=== PATIENT | female | born 1960 | race Caucasian/White ===

== ENCOUNTER → 2018-04-29 15:49 | Outpatient (REF) | payer BC, SELFPAY ==
[2018-04-29 18:29] LABS: Basophils % 0.6 % (0.1-2.0); Eosinophils # 0.2 K/mm3 (0.0-0.4); Eosinophils % 3.3 % (0.1-12.0); Hematocrit 39.7 % (37.0-47.0); Hemoglobin 12.8 g/dL (12.2-16.2); Lymphocytes # 1.7 K/mm3 (0.7-4.5); Mean Corpuscular HGB Conc 32.3 g/dL (31.8-35.4); Mean Corpuscular Hemoglobin 31.2 pg (27.0-31.2); Mean Corpuscular Volume 96.6 fl (81-99); Mean Platelet Volume 8.2 fl (7.4-10.4); Monocytes # 0.3 K/mm3 (0.1-1.0); Monocytes % 5.6 % (1.7-9.3); Neutrophils # 2.7 K/mm3 (1.8-7.8); Neutrophils % 55.5 % (37.0-80.0); Platelet Count 267 K/mm3 (142-424); Red Blood Count 4.11 M/mm3 (4.20-5.40); Red Cell Distribution Width 13.3 % (11.5-17.5); White Blood Count 4.9 K/mm3 (4.8-10.8)
[2018-04-29 19:01] LABS: Alanine Aminotransferase 19 U/L (12-78); Albumin Level 3.7 gm/dL (3.4-5.0); Albumin/Globulin Ratio 1.1 (1.1-1.8); Alkaline Phosphatase 101 U/L (46-116); Anion Gap 14.8 mEq/L (5-15); Aspartate Amino Transferase 16 U/L (15-37); Bilirubin,Total 0.3 mg/dL (0.2-1.0); Blood Urea Nitrogen 13 mg/dL (7-18); Calcium 8.8 mg/dL (8.5-10.1); Carbon Dioxide 25 mmol/L (21.0-32.0); Chloride 106 mmol/L (98-107); Cholesterol 206 mg/dL (140-200); Creatinine,Serum 0.84 mg/dL (0.55-1.02); Estimated Glomerular Filt Rate 70 ml/min (>60); GFR (African American) 85 ML/MIN (>60); Globulin 3.5 gm/dl (1.3-3.2); Glucose 121 mg/dL (74-106); HDL Cholesterol 69 mg/dL (29-89); LDL Cholesterol 107 mg/dL (0-130); Potassium 3.8 mmoL/L (3.5-5.1); Sodium 142 mmol/L (136-145); T4 (Thyroxine) 5.4 ug/dl (4.7-13.3); Thyroid Stimulating Hormone 2.46 uIU/ml (0.358-3.740); Total Protein,Serum 7.2 gm/dL (6.4-8.2); Triglycerides 148 mg/dL (30-200); VLDL Cholesterol 30 mg/dL (0-40)
[2018-05-01 20:25] LABS: Vitamin D 25 Hydroxy 24.8 ng/mL (30.0-100.0)
== END ==
LOC: LAB 15:49
PROVIDERS: Visit Provider Physician Assistant
DX: M79.89 Other specified soft tissue disorders (principal)
CPT/HCPCS: 80053; 80061; 82652; 84436; 84443; 85025

== ENCOUNTER 2018-06-07 08:30 | Outpatient (RCR) | payer BC, SELFPAY ==
--- NOTE | 2018-05-25 10:48 | HMH.PTOPEV ---
PT Outpatient Evaluation Rehab PT Outpatient Evaluation Start: 05/25/18 10:35 Freq: Status: Active Protocol: Document 05/25/18 10:35 MIKEY (Rec: 05/25/18 10:48 MIKEY [id number]) Electronically Signed By Miguel Scott, PT 05/25/18 10:35 Outpatient Therapy Subjective History Subjective History Patient is a 57 year old female presenting to outpatient PT with reports of chronic L knee pain staring approximately 6 months ago of insidious onset. Pt reports most recent diagnostics negative. Pt occupation includes constant standing, walking, bending and lifting activity. Pt reports hx of lumbar spine laminectomy. Chief Complaint Pain Swelling Symptom Type Ache Sharp Tingling Symptoms Relieved By Rest/Positioning OTC Meds Symptoms Aggravated By Bending/Stooping Physical Activity Walking Lifting Prior Functional Limitations None Current Functional Limitations Lifting Housework Sleeping Standing Squatting Recreation Activity Walking Stairs Symptom Description Intermittent Level of pain today (0-10) 0 Pain scale - at its best (0-10) 0 Pain scale - at its worst (0-10) 5 Hip/Knee Eval Gait Observation General Gait Pattern Observation Antalgic Gait Assistive Device Assistive Devices None / NA Palpation Tenderness left Knee Palpation Finding Tenderness Knee Palpation Overall Comment pes anserene MMT right Hip Flexion Strength Grade 4 Good Hip Abduction Strength Grade 4 Good Hip Adduction Strength Grade 4 Good Hip Extension Strength Grade 4 Good Gluteus Anthony Strength Grade 4 Good Hip External Rotation Strength Grade 4 Good Hip Internal Rotation Strength Grade 4 Good Knee Extension Strength Grade 4 Good Knee Flexion Strength Grade 4 Good left Hip Flexion Strength Grade 4 Good Hip Abduction Strength Grade 4 Good Hip Adduction Strength Grade 4 Good Hip Extension Strength Grade 4- Good- Hip Exte
== END 2018-06-07 08:31 | disposition home or self-care (01) ==
LOC: PT 08:30
PROVIDERS: Visit Provider Physician Assistant
DX: M25.562 Pain in left knee (principal)
CPT/HCPCS: 97010; 97014; 97033; 97035; 97110; 97163; G0283

== ENCOUNTER 2021-02-26 12:11 | Emergency (ER) | payer BC, SELFPAY ==
[2021-02-26 12:15] VITALS: BP 147/100; PULSE 70; RESP 20; TEMP 36.9; O2SAT 96; BMI 32.8
[2021-02-26 12:43] LABS: UTC Strep Screen (Rapid) Negative (Negative)
--- NOTE | 2021-02-26 12:47 | HMH.EDUTC ---
[facility] [place] Disposition Clinical Impression: Paronychia of toe of right foot, Right foot pain Pharyngitis Qualifiers: Pharyngitis/tonsillitis etiology: unspecified etiology Qualified Code(s): J02.9 - Acute pharyngitis, unspecified Sciatica Qualifiers: Laterality: right Qualified Code(s): M54.31 - Sciatica, right side Disposition: Home, Self-Care Condition on Discharge: Good Instructions: DI for Pharyngitis/Tonsillopharyngitis -- Adult, DI for Sciatica Additional Instructions: Drink plenty of fluids. Take tylenol or ibuprofen for pain or fever. Take the medications as directed. Follow up with your regular doctor. GO TO THE ER FOR ANY WORSENING SYMPTOMS Go home and rest. It would be best if you rested tomorrow too. No heavy lifting. No twisting. Prescriptions: methylPREDNISolone [Medrol] 4 mg PO DIRECTED 6 Days #21 tab.ds.pk Transmission Status: Received by [id number] Azithromycin [Z-Christoph 250mg Tab*] 250 mg PO UD DOSE PK #6 tab Transmission Status: Received by [id number] Referrals: Provider,Referral, [Primary Care Provider] - Time of Disposition: 13:06 Medical Decision Making - Medical Records Medical records reviewed: No: I reviewed the patient's medical records. - Jose Inquiry Pt receiving controlled substance: No Vital Signs: 02/26/21 12:15 02/26/21 13:13 Temperature 98.4 F 98.4 F Temperature Source Oral Pulse Rate 70 Pulse Rate [Left Brachial] 70 Respiratory Rate 20 20 Blood Pressure 147/100 H Blood Pressure [Left Arm] 147/100 H Blood Pressure Mean [Left Arm] 115 Blood Pressure Source [Left Arm] Automatic Cuff Blood Pressure Position [Left Arm] Sitting 02 Sat by Pulse Oximetry 96 Oxygen Delivery Method Room Air - Lab Data Lab results reviewed: Yes: I reviewed the patient's lab results. Lab Results 02/26/21 12:33: Strep Scn Rapid Clinic Negative Orders (Tests/Meds): ORDERS Category Date Time Status Strep Screen Confirmation Stat Micro 02/26/21 12:33 Received [facility] [place] HPI - General Stated complaint: sore throat , numbness on part of the bottom of right foot Time Seen by Provider: 02/26/21 12:47 Mode of Arrival: Ambulatory Source of Information: Patient Limitations: No Limitations Description of Symptoms (Recalled from Triage Doc. by RN): PATIENT C/O NUMBNESS AND TINGLING TO RIGHT FOOT, SORENESS TO BACK OF RIGHT THIGH, AND SORE THROAT X 4 DAYS HEENT Symptoms (Recalled from RN notes): Yes Resp Symptoms (Recalled from RN notes): No Skin Symptoms (Recalled from RN notes): No MS Symptoms (Recalled from RN notes): Yes Functional Status (Recalled from RN notes): WNL - History of Present Illness Provider Complaint: She states that she has had a sore throat for the past 4 days. She denies any fever/chills/body aches/chest congestion. She has had some sinus congestion and ear pain. She has also been having pain that radiates down the back of her right thigh to just above her knee and a tingling feeling of the 2nd to 5th toes on that foot. - Related Data Previous Rx's Medication Instructions Recorded azithromycin 250 mg tablet 250 mg PO QDAY 5 Days #6 tab 07/18/19 benzonatate 100 mg capsule 100 mg PO TID PRN #14 cap 07/18/19 Azithromycin [Z-Christoph 250mg Tab*] 250 mg PO UD DOSE PK #6 tab 02/26/21 methylPREDNISolone [Medrol] 4 mg PO DIRECTED 6 Days #21 02/26/21 tab.ds.pk Allergies Allergy/AdvReac Type Severity Reaction Status Date / Time acetaminophen Allergy Verified 07/18/19 18:51 [From Darvocet-N] meperidine [From Demerol] Allergy Verified 07/18/19 18:51 propoxyphene Allergy Verified 07/18/19 18:51 [From Darvocet-N] sertraline [From Zoloft] Allergy Verified 07/18/19 18:51 venlafaxine [From Effexor] Allergy Verified 07/18/19 18:51 - Worker's Comp Is this a Worker's Comp case?: No H History - Hepatitis A Screen Drug use history?: No High risk sexual behaviors?: No History of sexu
[2021-02-26 13:13] VITALS: BP 147/100; PULSE 70; RESP 20; TEMP 36.9; O2SAT 96
== END 2021-02-26 13:16 | disposition home or self-care (01) ==
PROVIDERS: Emergency Provider Nurse Practitioner Family
DX: L03.031 Cellulitis of right toe (principal); J02.9 Acute pharyngitis, unspecified; M54.31 Sciatica, right side; Z88.5 Allergy status to narcotic agent
CPT/HCPCS: 87880; 99202; G0463

== ENCOUNTER 2021-05-20 09:02 | Emergency (ER) | payer BC, SELFPAY ==
[2021-05-20 09:34] VITALS: BP 149/89; PULSE 73; RESP 16; TEMP 37.5; O2SAT 96; BMI 31.8
--- NOTE | 2021-05-20 09:55 | HMH.EDUTC ---
[facility] [place] Disposition Clinical Impression: Sinusitis Qualifiers: Sinusitis location: unspecified location Chronicity: acute Recurrence: non-recurrent Qualified Code(s): J01.90 - Acute sinusitis, unspecified Sinusitis, acute maxillary Qualifiers: Recurrence: non-recurrent Qualified Code(s): J01.00 - Acute maxillary sinusitis, unspecified Disposition: Home, Self-Care Condition on Discharge: Good Instructions: Sinusitis, DI for Sinusitis Additional Instructions: Drink plenty of fluids. Take tylenol or ibuprofen for pain or fever. Take the medications as directed. Follow up with your regular doctor. GO TO THE ER FOR ANY WORSENING SYMPTOMS Quarantine until you know the results of your covid-19 test. If it is positive, the health department should call you and give you further instructions about your length of Quarantine and other things. Notify your school or workplace of your results and follow their instructions regarding return to work/school. Prescriptions: Amoxicillin [Amoxicillin 500mg Tab] 500 mg PO TID 10 Days #30 tab Transmission Status: Received by [id number] predniSONE [Deltasone 10mg tablet] 10 mg PO BID 3 Days #6 tab Transmission Status: Received by [facility] Referrals: Provider,Referral, [Primary Care Provider] - Time of Disposition: 10:04 Medical Decision Making - Medical Records Medical records reviewed: No: I reviewed the patient's medical records. - Jose Inquiry Pt receiving controlled substance: No Vital Signs: 05/20/21 09:34 05/20/21 10:06 Temperature 99.5 F 98.3 F Temperature Source Oral Oral Pulse Rate 70 Pulse Rate [Right] 73 Respiratory Rate 16 16 Blood Pressure 147/74 H Blood Pressure [Right Arm] 149/89 H Blood Pressure Mean [Right Arm] 109 Blood Pressure Source Automatic Cuff Blood Pressure Source [Right Arm] Automatic Cuff Blood Pressure Position Sitting Blood Pressure Position [Right Arm] Sitting 02 Sat by Pulse Oximetry 96 Oxygen Delivery Method Room Air Room Air - Lab Data Lab results reviewed: Yes: I reviewed the patient's lab results. [facility] [place] HPI - General Stated complaint: possible sinus infection Time Seen by Provider: 05/20/21 09:45 Mode of Arrival: Ambulatory Source of Information: Patient Limitations: No Limitations Description of Symptoms (Recalled from Triage Doc. by RN): pt c/o fever, sinus congestion and not feeling well HEENT Symptoms (Recalled from RN notes): Yes (fever, sinus pressure) Resp Symptoms (Recalled from RN notes): No Skin Symptoms (Recalled from RN notes): No MS Symptoms (Recalled from RN notes): No Functional Status (Recalled from RN notes): na - History of Present Illness Provider Complaint: She c/o 5 days of worsening sinus congestion. She denies any known covid exposure. - Related Data Previous Rx's Medication Instructions Recorded azithromycin 250 mg tablet 250 mg PO QDAY 5 Days #6 tab 07/18/19 benzonatate 100 mg capsule 100 mg PO TID PRN #14 cap 07/18/19 Azithromycin [Z-Christoph 250mg Tab*] 250 mg PO UD DOSE PK #6 tab 02/26/21 methylPREDNISolone [Medrol] 4 mg PO DIRECTED 6 Days #21 02/26/21 tab.ds.pk Amoxicillin [Amoxicillin 500mg Tab] 500 mg PO TID 10 Days #30 tab 05/20/21 predniSONE [Deltasone 10mg tablet] 10 mg PO BID 3 Days #6 tab 05/20/21 Allergies Allergy/AdvReac Type Severity Reaction Status Date / Time acetaminophen Allergy Verified 07/18/19 18:51 [From Darvocet-N] meperidine [From Demerol] Allergy Verified 07/18/19 18:51 propoxyphene Allergy Verified 07/18/19 18:51 [From Darvocet-N] sertraline [From Zoloft] Allergy Verified 07/18/19 18:51 venlafaxine [From Effexor] Allergy Verified 07/18/19 18:51 - Worker's Comp Is this a Worker's Comp case?: No [facility] History - Hepatitis A Screen Drug use history?: No High risk sexual behaviors?: No History of sexually transmitted infection?: No Currently employed?: No Childcare worker?: No Do y
[2021-05-20 10:06] VITALS: BP 147/74; PULSE 70; RESP 16; TEMP 36.8; O2SAT 98
== END 2021-05-20 10:07 | disposition home or self-care (01) ==
PROVIDERS: Emergency Provider Nurse Practitioner Family
DX: U07.1 COVID-19 (principal); J01.90 Acute sinusitis, unspecified
CPT/HCPCS: 99202; C9803; G0463; U0003; U0005

== ENCOUNTER 2021-05-25 19:20 | Emergency (ER) | payer BC, SELFPAY ==
--- NOTE | 2021-05-25 19:20 | ECG_ITS ---
APPROVED REPORT Exam: Resting ECG HR:91 bpm ECG Measurements Heart Rate 91 AXES [place] 122 P 45 QRSd 84 QRS -23 QT 356 T 41 QTc 437 Conclusion Normal sinus rhythm Possible Left atrial enlargement Borderline ECG Electronically signed by : Viral Centeno MD 06/12/2021 21:27:49
[2021-05-25 19:21] VITALS: BP 156/105; PULSE 102; RESP 24; TEMP 37.7; O2SAT 94; BMI 32.8
--- NOTE | 2021-05-25 19:27 | CT_ITS ---
PROCEDURE INFORMATION: Exam: CTA Chest With Contrast Exam date and time: 05/25/2021 7:27 PM Age: 60 years old Clinical indication: Dyspnea and other: Covid positivie; Additional info: Chest discomfort, covid +, dyspnea TECHNIQUE: Imaging protocol: Computed tomographic angiography of the chest with contrast. 3D rendering (Not supervised by radiologist): MIP and/or 3D reconstructed images were created by the technologist. Radiation optimization: All CT scans at this facility use at least one of these dose optimization techniques: automated exposure control; mA and/or kV adjustment per patient size (includes targeted exams where dose is matched to clinical indication); or iterative reconstruction. Contrast material: ISOVUE 370; Contrast volume: 70 ml; Contrast route: INTRAVENOUS (IV); COMPARISON: CR XR CHEST 2V 05/25/2021 8:11 PM FINDINGS: Pulmonary arteries: Normal. No pulmonary emboli to the segmental level in most cases. Aorta: Unremarkable. No aortic aneurysm. No aortic dissection. Lungs: Mild scattered bilateral patchy airspace opacities are seen. Mild dependent bilateral atelectasis. Pleural spaces: Unremarkable. No pneumothorax. No pleural effusion. Heart: Unremarkable. No cardiomegaly. No pericardial effusion. Lymph nodes: Mildly prominent mediastinal lymph nodes. Bones/joints: Unremarkable. No acute fracture. Soft tissues: Unremarkable. IMPRESSION: 1. No evidence of pulmonary embolus 2. Mild scattered bilateral airspace opacities compatible with infection 3. Mild mediastinal adenopathy is probably reactive
--- NOTE | 2021-05-25 19:27 | XR_ITS ---
PROCEDURE INFORMATION: Exam: XR Chest Exam date and time: 05/25/2021 7:27 PM Age: 60 years old Clinical indication: Dyspnea and other: Covid; Additional info: Dyspnea, covid + TECHNIQUE: Imaging protocol: XR of the chest. Views: 2 views. COMPARISON: No relevant prior studies available. FINDINGS: Lungs: Faint bilateral airspace opacities. Pleural spaces: Unremarkable. No pleural effusion. No pneumothorax. Heart/Mediastinum: Unremarkable. No cardiomegaly. Bones/joints: Unremarkable. IMPRESSION: Faint bilateral airspace opacities compatible with infection
--- NOTE | 2021-05-25 19:57 | HMH.EDCP ---
ED Disposition Clinical Impression: COVID-19, Pleurisy Disposition: Home, Self-Care Condition on Discharge: Good Instructions: DI for COVID-19 (Suspected or Confirmed ) Additional Instructions: fluids and use meds and see pcp for follow up Prescriptions: predniSONE [Prednisone 20mg Tab] 20 mg PO BID #10 tab Transmission Status: Pending to [facility] Azithromycin [Zithromax 250mg tab] 250 mg PO DIRECTED #6 tab [facility] Status[facility] Referrals: Provider,Referral, [Primary Care Provider] - - Critical Care Critical Care Time: No Attestation: On 05/25/21, the high probability of a clinically significant, sudden or life threatening deterioration of the following system(s) required my full and direct attention, intervention and personal management. The time I documented below is in addition to time spent performing reported procedures but includes the following listed in this critical care notation. Medical Decision Making - Medical Records Medical records reviewed: Yes: I reviewed the patient's medical records. - Jose Inquiry Pt receiving controlled substance: No Vital Signs: 05/25/21 19:21 05/25/21 20:48 Temperature 99.9 F H 98.8 F Temperature Source Oral Pulse Rate 79 Pulse Rate [Right Brachial] 102 H Respiratory Rate 24 Blood Pressure 145/99 H Blood Pressure [Right Arm] 156/105 H Blood Pressure Mean 107 Blood Pressure Mean [Right Arm] 122 Blood Pressure Source [Right Arm] Automatic Cuff Blood Pressure Position [Right Arm] Sitting 02 Sat by Pulse Oximetry 94 L 95 Oxygen Delivery Method Room Air - Lab Data Lab results reviewed: Yes: I reviewed the patient's lab results. Lab Results 05/25/21 19:43: WBC 2.5 L, RBC 4.37, Hgb 13.9, Hct 42.8, MCV 97.9, MCH 31.7 H, MCHC 32.4, RDW 14.0, Plt Count 137 L, MPV 9.5, Neut % (Auto) 70.8, Lymph % (Auto) 22.8, [place] % (Auto) 5.7, Eos % (Auto) 0.1, Baso % (Auto) 0.6, Neut # (Auto) 1.8, Lymph # (Auto) 0.6 L, [place] # (Auto) 0.1, Eos # (Auto) 0.0, Baso # (Auto) 0.0 05/25/21 19:43: Sodium 139, Potassium 3.7, Chloride 104, Carbon Dioxide 25, Anion Gap 13.7, BUN 7, Creatinine 0.50 L, Estimated Creat Clear 159, Estimated GFR 126, Est GFR ( Amer) 152, Glucose 112 H, Calcium 8.4, Troponin I < 0.01, C-Reactive Protein 19.2 H, TSH 4.26, Thyroxine (T4) 9.3 05/25/21 19:43: ESR 19 05/25/21 19:43: NT-Pro-B Natriuret Pep 88.7, Procalcitonin 0.044 05/25/21 19:43: Lactate 0.9 05/25/21 19:43: Total Bilirubin 0.3, Direct Bilirubin 0.2, Conjugated Bilirubin 0.0, Indirect Bilirubin 0.1, Unconjugated Bilirubin 0.2, AST 64 H, ALT 28, Alkaline Phosphatase 83, Total Protein 6.6, Albumin 3.6 Result diagrams: 05/25/21 19:43 05/25/21 19:43 Orders (Tests/Meds): ED MEDICATIONS Generic Name Dose Route Start Last Admin Trade Name Freq PRN Reason Stop Dose Admin Sodium Chloride 1,000 mls @ 999 mls/hr 05/25/21 19:30 05/25/21 19:37 Sod Chlor 0.9% 1000ml Bag IV 05/25/21 20:30 999 mls/hr .Q1H1M EDIE Administration Discontinued Medications Generic Name Dose Route Start Last Admin Trade Name Freq PRN Reason Stop Dose Admin Acetaminophen 1,000 mg 05/25/21 19:29 05/25/21 19:30 Acetaminophen 500mg Tab PO 05/25/21 19:30 Not Given ONCE ONE Dexamethasone Sodium Phosphate 10 mg 05/25/21 22:24 Dexamethasone 4mg/Ml 5ml Mdv IV 05/25/21 22:25 ONCE ONE Ibuprofen 600 mg 05/25/21 19:30 05/25/21 19:36 Ibuprofen 600 Mg Tablet PO 05/25/21 19:31 600 mg ONCE ONE Administration Iopamidol 70 ml 05/25/21 20:49 05/25/21 20:50 Iopamidol-370 (76%);100ml Bottle IV 05/25/21 20:50 70 ml ONCE ONE Administration Ketorolac Tromethamine 30 mg 05/25/21 22:24 Ketorolac 30mg/Ml Vial IV 05/25/21 22:25 ONCE ONE Sodium Chloride 40 ml 05/25/21 20:49 05/25/21 20:50 0.9 % Sodium Chloride 50 Ml Vial IV 05/25/21 20:50 40 ml ONCE ONE Administration Sodium Chloride 10 ml 0
[2021-05-25 20:02] LABS: Basophils % 0.6 % (0.1-2.0); Eosinophils % 0.1 % (0.1-12.0); Hematocrit 42.8 % (37.0-47.0); Hemoglobin 13.9 g/dL (12.2-16.2); Lymphocytes # 0.6 K/mm3 (0.7-4.5); Lymphocytes % 22.8 % (10-50); Mean Corpuscular HGB Conc 32.4 g/dL (31.8-35.4); Mean Corpuscular Hemoglobin 31.7 pg (27.0-31.2); Mean Corpuscular Volume 97.9 fl (81-99); Mean Platelet Volume 9.5 fl (7.4-10.4); Monocytes # 0.1 K/mm3 (0.1-1.0); Monocytes % 5.7 % (1.7-9.3); Neutrophils # 1.8 K/mm3 (1.8-7.8); Neutrophils % 70.8 % (37.0-80.0); Platelet Count 137 K/mm3 (142-424); Red Blood Count 4.37 M/mm3 (4.20-5.40); White Blood Count 2.5 K/mm3 (4.8-10.8)
[2021-05-25 20:03] LABS: Anion Gap 13.7 mEq/L (5-15); Blood Urea Nitrogen 7 mg/dl (7-17); Calcium 8.4 mg/dl (8.4-10.2); Carbon Dioxide 25 mmol/L (22.0-30.0); Chloride 104 mmol/L (98-107); Creatinine Clearance Estimated 159 mL/min (50-200); Estimated Glomerular Filt Rate 126 ml/min (>60); GFR (African American) 152 ML/MIN (>60); Glucose 112 mg/dl (74-100); Potassium 3.7 mmoL/L (3.5-5.1); Sodium 139 mmol/L (136-145)
[2021-05-25 20:09] LABS: C-Reactive Protein 19.2 mg/L (0-4)
[2021-05-25 20:12] LABS: Lactic Acid 0.9 mmol/L (0.7-2.1)
[2021-05-25 20:15] LABS: NT Pro Brain Natriuretic Pep. 88.7 pg/mL (0-125)
--- NOTE | 2021-05-25 20:17 | PC.NURSE ---
pt going to radiology at this time
[2021-05-25 20:22] LABS: Procalcitonin 0.044 ng/mL (0.0-2.0)
[2021-05-25 20:23] LABS: Alanine Aminotransferase 28 U/L (12-78); Bilirubin,Unconjugated 0.2 mg/dL (0.0-1.1); T4 (Thyroxine) 9.3 ug/dl (5.53-11.0)
[2021-05-25 20:24] LABS: Albumin Level 3.6 g/dl (3.5-5.0); Alkaline Phosphatase 83 U/L (38-126); Aspartate Amino Transferase 64 U/L (14-36); Bilirubin,Direct 0.2 mg/dl (0.0-0.4); Bilirubin,Indirect 0.1 mg/dL (0.0-0.9); Bilirubin,Total 0.3 mg/dl (0.2-1.3); Total Protein,Serum 6.6 g/dl (6.3-8.2)
[2021-05-25 20:27] LABS: Erythrocyte Sedimentation Rate 19 mm/hr (0-30); Troponin I < 0.01 ng/ml (0.00-0.034)
[2021-05-25 20:37] LABS: Thyroid Stimulating Hormone 4.26 uIU/mL (0.465-4.68)
--- NOTE | 2021-05-25 20:45 | PC.NURSE ---
pt returned from radiology
[2021-05-25 20:48] VITALS: BP 145/99; PULSE 79; TEMP 37.1; O2SAT 95
[2021-05-25 22:48] VITALS: BP 142/70; PULSE 78; RESP 18; TEMP 36.8; O2SAT 98
== END 2021-05-25 23:04 | disposition home or self-care (01) ==
PROVIDERS: Emergency Provider Emergency Medicine
DX: U07.1 COVID-19 (principal); R09.1 Pleurisy
CPT/HCPCS: 71046; 71275; 80048; 80076; 83605; 83880; 84145; 84436; 84443; 84484; 85025; 85651; 86140; 93005; 96365; 96375; 99283; Q9967

== ENCOUNTER 2024-07-02 13:51 | Emergency (ER) | payer BC, SELFPAY ==
[2024-07-02 14:16] VITALS: BP 180/104; PULSE 70; RESP 18; TEMP 36.9; O2SAT 96; BMI 32.8
[2024-07-02 14:26] LABS: UTC Strep Screen (Rapid) Negative (Negative)
[2024-07-02 14:30] VITALS: BP 180/70
--- NOTE | 2024-07-02 15:15 | EXP.UTC ---
Discharge Plan Disposition Patient Disposition: Home, Self-Care Condition: Good Prescriptions Prescriptions: New azithromycin 250 mg tablet See Rx Instructions .ROUTE .COMPLEX Qty: 6 0RF Rx Instructions: For 250 mg dose pack: take 500 mg today (day 1), then 250 mg for 4 days (days 2-5) benzonatate 100 mg capsule 100 mg PO TID PRN (Reason: cough) Qty: 30 0RF fluticasone propionate [Flonase Allergy Relief] 50 mcg/actuation spray,suspension 1 spray intranasal DAILY Qty: 16 0RF Rx Instructions: administer into each nostril Referrals Follow up/Referrals: Provider,Referral, MD [Primary Care Provider] - See instructions Activity Restrictions/Add. Instructions Additional Instructions/Restrictions: Take medication as prescribed. Increase fluids and rest. If symptoms persist or worsen return to clinic/PCP. If you become short of air return to the ER. Check BP 3 times a week at different times and keep a record. Take record to pcp. Clinical Impressions Clinical Impression: Acute lower respiratory infection, Pharyngitis, Acute dysfunction of both eustachian tubes Instructions Patient Instructions: Acute Bronchitis, DI for Pharyngitis/Tonsillopharyngitis -- Adult, DI for Eustachian Tube Dysfunction-Adult Print Language Print Language: [place] Discharge ED Provider: Massiel Hsu [facility] General Stated complaint: sore throat Mode of Arrival: Ambulatory Source of Information: Patient Time Seen by Provider: 07/02/24 15:14 Description of Symptoms (Recalled from Triage Doc. by RN): COUGH, SORE THROAT, FEVER HEENT Symptoms (Recalled from RN notes): Yes Resp Symptoms (Recalled from RN notes): Yes Skin Symptoms (Recalled from RN notes): No MS Symptoms (Recalled from RN notes): No Functional Status (Recalled from RN notes): WNL History of Present Illness Provider Complaint: Pt reports that she has not felt well for a week. She states that she has coughed up yellow-green mucous. She states that she has had clear sinus drainage and a sore throat. Related Data Previous Rx's ?Medication ?Instructions ?Recorded azithromycin 250 mg tablet See Rx Instructions PO .COMPLEX #6 07/02/24 tabs benzonatate 100 mg capsule 100 mg PO TID PRN cough #30 caps 07/02/24 fluticasone propionate 50 1 spray intranasal DAILY #16 grams 07/02/24 mcg/actuation nasal spray,suspension (Flonase Allergy Relief) Allergies Allergy/AdvReac Type Severity Reaction Status Date / Time acetaminophen Allergy Verified 05/02/24 16:44 [From Darvocet-N] meperidine [From Demerol] Allergy Verified 05/02/24 16:44 propoxyphene Allergy Hives Verified 05/02/24 16:44 [From Darvocet-N] sertraline [From Zoloft] Allergy Verified 05/02/24 16:44 venlafaxine [From Effexor] Allergy Verified 05/02/24 16:44 Worker's Comp Is this a Worker's Comp case?: No [facility] Disclaimer: The information contained in this section may have been updated after the patient was seen, as this information can be updated by other users. Medical History (Updated 07/02/24 @ 15:38 by Massiel Hsu APRN) Left knee pain Social History Smoking Status: Never smoker alcohol intake: never substance use type: denies use current occupational status: employed Travel in the last 8 weeks: None ROS Obtained: Yes All systems reviewed & no additional complaints except as documented Constitutional Constitutional: Reports system reviewed and no additional complaints, except as documented Eyes Eyes: Reports system reviewed and no additional complaints, except as documented ENT Ears, Nose, Mouth, and Throat: Reports system reviewed and no additional complaints, except as documented, Reports otalgia, Reports nasal discharge, Reports odynophagia, Reports sinus pressure and Reports sore throat Cardiovascular Cardiovascular: Reports system reviewed and no additional complaints, except as documented Respiratory Respiratory: Reports system reviewed and no additional complaints, except as documented, Reports change in phlegm color, Reports cough and Reports cough with sputum production Gastrointestinal Gastrointestingal: Reports system reviewed and no additional complaints, except as documented and odynophagia Genitourinary Female Genitourinary: Reports system reviewed and no additional complaints, except as documented Musculoskeletal Musculoskeletal: Reports system reviewed and no additional complaints, except as documented Integumentary/Breasts Skin/Breast: Reports system reviewed and no additional complaints, except as documented Neurologic Neurologic: Reports system reviewed and no additional complaints, except as documented Endocrine Endocrine: Reports system reviewed and no additional complaints, except as documented Hematologic/Lymphatic Henatologic/Lymphatic: Reports system reviewed and no additional complaints, except as documented Allergic/Immunologic Allergic/Immunologic: Reports system reviewed and no additional complaints, except as documented Physical Exam General General appearance: alert and in no apparent distress Head Head exam: atraumatic and normocephalic Eye Eye exam: Present normal appearance ENT ENT exam: Present mucous membranes moist Expanded ENT Exam External ear exam: Present normal external inspection TM/Canal exam: Bilateral TM: effusion (clear bubbles) Nose exam: Present sinus tenderness Nasal speculum exam: Bilateral: other (clear drainage) Mouth exam: Present normal external inspection Teeth exam: Present normal inspection Throat exam: Present tonsillar erythema Comment: cobblestoning present Neck Neck exam: Present normal inspection Chest Chest inspection: Present normal inspection and symmetric chest wall rise Respiratory Respiratory exam: Present other (course sounds throughout.) Cardiovascular Cardiovascular exam: Present regular rate and normal rhythm Abdominal Exam Abdominal exam: Present soft and normal bowel sounds Extremities Exam Extremities exam: Present normal inspection Back Exam Back exam: Present normal inspection Neurological Exam Neurological exam: Present alert and oriented X3 Psychiatric Psychiatric exam: Present normal affect and normal mood Skin Skin exam: Present warm, dry and intact Lymphatic Lymphatic Findings: no adenopathy Medical Decision Making Medical Records Screening: Per USPSTF and CDC recommendations, given the prevalence of disease in our region, it is our hospital?s policy to screen for HIV and viral Hepatitis for all patients aged 18 and over and those with ongoing risk factors. Jose Inquiry Pt receiving controlled substance: No Jose was queried for this patient: No Vital Signs: 07/02/24 14:16 07/02/24 14:30 Temperature 98.5 F Temperature Source Oral Pulse Rate [Left Radial] 70 Respiratory Rate 18 Blood Pressure [Left Arm] 180/104 H 180/70 H Blood Pressure Mean [Left Arm] 129 106 Blood Pressure Source [Left Arm] Manual Cuff/ Auscultation 02 Sat by Pulse Oximetry 96 Lab Data Lab results reviewed: Yes I reviewed the patient's lab results. Lab Results 07/02/24 14:13: Strep Scn Rapid Clinic Negative Orders (Tests/Meds): ORDERS Category Date Time Status Strep Screen Confirmation Stat Micro 07/02/24 14:13 Received
[2024-07-02 15:34] VITALS: BP 180/70; PULSE 70; RESP 18; TEMP 36.9
== END 2024-07-02 15:39 | disposition home or self-care (01) ==
PROVIDERS: Emergency Provider Nurse Practitioner Family
DX: J06.9 Acute upper respiratory infection, unspecified (principal); J02.9 Acute pharyngitis, unspecified; H69.83 Other specified disorders of Eustachian tube, bilateral
CPT/HCPCS: 87880; 99213; G0381